=== PATIENT | male | born 1995 | race Caucasian/White ===

== ENCOUNTER 2022-08-10 09:09 | Emergency (ER) | payer OTHER, SELFPAY ==
[2022-08-10 09:18] VITALS: BP 158/90; PULSE 89; RESP 28; TEMP 36.5; O2SAT 99; BMI 29.0
--- NOTE | 2022-08-10 09:24 | DI.RAD.S_ITS ---
PROCEDURE: XR CHEST 1V INDICATIONS: Flu like symptoms TECHNIQUE: One view of the chest was acquired. COMPARISON: None. FINDINGS: Surgical changes and devices: None. Lungs and pleura: Lungs are clear. No pleural effusions or pneumothorax. Mediastinum: Mediastinal contours appear normal. Heart size is normal. Bones and chest wall: No suspicious bony lesions. Overlying soft tissues appear unremarkable. IMPRESSION: No acute cardiopulmonary process demonstrated radiographically. Dictated by: Hemal Barrera M.D. on 08/10/2022 at 9:51 Approved by: Hemal Barrera M.D. on 08/10/2022 at 9:52
--- NOTE | 2022-08-10 09:34 | ED_ITS ---
HPI - General Adult General Chief complaint: Shortness of Breath/Dyspnea Stated complaint: sob t-1 Time Seen by Provider: 08/10/22 09:32 Source: patient Mode of arrival: Ambulatory History of Present Illness HPI narrative: 19-year-old male. He states as a kid he was diagnosed with asthma but has not had any issues for the past 10 years. Yesterday he was at work. 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 Since that time things have worsened. He also reported fevers last evening. Chest pain with coughing. Does not have any inhalers at home so has not tried anything for his symptoms. Related Data Previous Rx's Medication Instructions Recorded albuterol sulfate 90 mcg/actuation 2 puff inhalation Q6H PRN 08/10/22 aerosol inhaler (ProAir HFA) shortness of breath or wheezing #8.5 grams Allergies Allergy/AdvReac Type Severity Reaction Status Date / Time ketamine AdvReac Unknown Verified 08/10/22 09:23 Review of Systems Constitutional Constitutional: Reports system reviewed and no additional complaints, except as documented Cardiovascular Cardiovascular: Reports system reviewed and no additional complaints, except as documented Respiratory Respiratory: Reports system reviewed and no additional complaints, except as documented Gastrointestinal Gastrointestinal: Reports system reviewed and no additional complaints, except as documented Integumentary/Breasts Skin/Breast: Reports system reviewed and no additional complaints, except as documented Neurologic Neurologic: Reports system reviewed and no additional complaints, except as doc umented Hematologic/Lymphatic On Anticoagulants: No Patient History Medical History Asthma Social History Smoking Status: Never smoker Smoking Status: Never smoker alcohol intake frequency: 3 or more drinks per day Substance Use Type: marijuana Exam Initial Vital Signs Initial Vital Signs: Vital Signs Temperature 97.7 F 08/10/22 09:18 Pulse Rate 89 08/10/22 09:18 Respiratory Rate 28 H 08/10/22 09:18 Blood Pressure 158/90 H 08/10/22 09:18 Pulse Oximetry 99 08/10/22 09:18 Oxygen Delivery Method 08/10/22 09:18 Const General: cooperative and comfortable HENMT Head: normal to inspection and normocephalic Resp Effort & Inspection: audible wheezes, cough, not labored and tachypneic Auscultation: wheezes Cardio Rate: regular rate Skin General: no rashes or lesions noted Neuro General: patient alert, patient awake and moves all extremities Extrem General: normal to inspection and capillary refill normal Psych Appearance: grossly normal Course Orders Ordered: ED Orders 08/10/22 09:24 XR chest 1V Stat 08/10/22 09:28 Covid-19 + FLU A/B + RSV - PCR Stat Discontinued Medications Albuterol/Ipratropium (Albuterol/Ipratropium 3 Ml Ampul) 3 ml INH NOW ONE Stop: 08/10/22 09:36 Last Admin: 08/10/22 09:56 Dose: 3 ml Documented By: MR Vital Signs Vital signs: Vital Signs - 8 hr 08/10/22 09:18 Temperature 97.7 F Pulse Rate 89 Respiratory Rate 28 H Blood Pressure 158/90 H Pulse Oximetry 99 Oxygen Delivery Method Room Air Medical Decision Making Lab Data Labs: Lab Results 08/10/22 Range/Units 09:28 SARS-CoV-2 (PCR) Negative (Negative) Influenza A (RT-PCR) Flu a negative (NEGATIVE) Influenza B (RT-PCR) Flu b negative (NEGATIVE) RSV (PCR) Negative (Negative) Imaging Data Chest x-ray: Radiologist's Impression: Close Chest X-Ray (Signed) Hemal Barrera - 08/10/22 Launch?[address] [address] XRay Report Signed Patient: Wan Paz MR#: [id number] : 1995 Acct:[id number] Age/Sex: 27 / M Date of Service: 08/10/22 Loc: ED Accession Number: [id number] ?? Procedure: XR chest 1V Ordering Provider: Kulwinder Gill D.O. PROCEDURE:? XR CHEST 1V ? INDICATIONS:? Flu like symptoms ? TECHNIQUE:? One view of the chest was acquired.? ? COMPARISON:? None. ? FINDINGS:? ? Surgical changes and devices:? None.? ? Lungs and pleura:? Lungs are clear.? No pleural effusions or pneumothorax.? ? Mediastinum:? Mediastinal contours appear normal.? Heart size is normal.? ? Bones and chest wall:? No suspicious bony lesions.? Overlying soft tissues appear unremarkable.? ? IMPRESSION:? No acute cardiopulmonary process demonstrated radiographically. ? ? Dictated by: Hemal Barrera M.D. on 08/10/2022 at 9:51 ? ? Approved by: Hemal Barrera M.D. on 08/10/2022 at 9:52?? MDM Narrative Medical decision making narrative: Patient with resolution of symptoms after 1 nebulizer treatment. He does have a history of asthma. He is also had some upper respiratory like infection symptoms. No indication for antibiotics. Will sent home with a prescription for albuterol. He was given return precautions. He expressed understanding and agreement. Discharge Plan Departure Patient Disposition: Home Clinical Impression: Diffuse wheezing Instructions: DI for Reactive Airway Disease-Adult Activity Restrictions/Additional Instructions: Your nasal swab today was negative for COVID, flu and also RSV. There is no indication for any antibiotics. A prescription for an albuterol inhaler was sent to [facility] use it as directed. Return to the emergency department for any new or worsening symptoms. Prescriptions: New albuterol sulfate [ProAir HFA] 90 mcg/actuation HFA aerosol inhaler 2 puff inhalation Q6H PRN (Reason: shortness of breath or wheezing) Qty: 8.5 0RF Referrals: Miscellaneous,DoctorMD [Primary Care Provider] -
[2022-08-10] MEDS: ALBUTEROL/IPRATROPIUM 3 ML AMPUL INH (09:56)
[2022-08-10 10:12] LABS: Influenza A - CEPHEID Flu A NEGATIVE (NEGATIVE); Influenza B - CEPHEID Flu B NEGATIVE (NEGATIVE); Respiratory Syncytial Virus Negative (Negative)
[2022-08-10 10:48] LABS: COVID-19 CEPHEID 4-PLEX PCR Negative (Negative)
[2022-08-10 11:08] VITALS: BP 122/78; PULSE 90; RESP 19; TEMP 36.4; O2SAT 99
== END 2022-08-10 11:12 | disposition home or self-care (01) ==
PROVIDERS: Emergency Provider Emergency Medicine
DX: R06.2 Wheezing (principal); R07.9 Chest pain, unspecified; Z20.822 Contact with and (suspected) exposure to COVID-19
CPT/HCPCS: 0241U; 71045; 99283

== ENCOUNTER 2022-10-08 18:06 | Emergency (ER) | payer OTHER, SELFPAY ==
[2022-10-08 18:12] VITALS: BP 141/78; PULSE 78; RESP 14; TEMP 36.7; O2SAT 99; BMI 21.3
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
[2022-10-08 20:57] VITALS: BP 133/82; PULSE 69; RESP 20; O2SAT 97
[2022-10-08] MEDS: TET,DIPH,PERTUSS(ACELL),VAC/PF 0.5 ML SYRINGE IM (21:56)
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
[2022-10-08] MEDS: LIDOCAINE 2% INJ MDV 50ML 1 MG SUBCUT (23:00)
[2022-10-08 23:13] VITALS: BP 132/75; PULSE 86; RESP 20; O2SAT 98
== END 2022-10-08 23:20 | disposition home or self-care (01) ==
PROVIDERS: Emergency Provider Emergency Medicine
DX: S01.511A Laceration without foreign body of lip, initial encounter (principal); Z23 Encounter for immunization; S50.12XA Contusion of left forearm, initial encounter; V43.52XA Car driver injured in collision with other type car in traffic accident, initial encounter
CPT/HCPCS: 12011; 73090; 90471; 99283; 90715